=== PATIENT | male | born 1985 | race Caucasian/White ===

== ENCOUNTER 2021-05-16 14:35 | Emergency (ER) | payer OTHER ==
[~2021-05-16 14:35] MED LIST: AMOXICILLIN500 MG PO; NAPROXEN500 MG PO
[2021-05-16] MEDS ORDERED: NORCO 5-325 TA1 EACH PO (16:40)
[2021-05-16] MEDS ORDERED: AMOXICILLIN875 MG PO (16:40)
== END 2021-05-16 17:13 | disposition home or self-care (01) ==
LOC: FER 14:35
DX: K04.7 Periapical abscess without sinus (principal)
CPT/HCPCS: 99282; Q0163

== ENCOUNTER 2021-06-01 09:24 | Emergency (ER) | payer OTHER ==
[~2021-06-01 09:24] MED LIST changes: +AMOXICILLIN875 MG PO; +NORCO 5-325 TA1 EACH PO
[2021-06-01] MEDS ORDERED: AUGMENTIN 875-1 EACH PO (10:27)
[2021-06-01] MEDS ORDERED: NAPROXEN500 MG PO (10:27)
[2021-06-01] MEDS ORDERED: NORCO 5-325 TA1 EACH PO (10:27)
== END 2021-06-01 10:30 | disposition home or self-care (01) ==
LOC: FER 09:24
DX: K04.7 Periapical abscess without sinus (principal); F17.210 Nicotine dependence, cigarettes, uncomplicated
CPT/HCPCS: 99282

== ENCOUNTER 2022-03-10 14:37 | Emergency (ER) | payer OTHER ==
[~2022-03-10 14:37] MED LIST changes: +AUGMENTIN 875-1 EACH PO
[2022-03-10 16:45] LABS: INFLUENZA A NAA NEGATIVE (NEGATIVE)
[2022-03-10 16:55] LABS: CORONAVIRUS 2019 SARS-COV-2 POSITIVE (NEGATIVE)
[2022-03-10 17:19] LABS: BASOPHIL 0.5 % (0-2); EOSINOPHIL 0.2 % (0-5); HCT 44.6 % (42.0-52.0); HGB 15.1 g/dl (13.2-18.0); LYMPHOCYTE 3.3 % (15-48); MCH 29.8 pg (25.0-31.0); MCHC 33.9 g/dL (32.0-36.0); MCV 88.1 fL (78.0-100.0); MONOCYTE 8.3 % (0-12); MPV 10.6 fL (6.0-9.5); NEUTROPHIL 86.1 % (41-80); NRBC 0; PLT 206 K/uL (150-400); RBC 5.06 M/uL (4.70-6.00); RDW 12.3 % (11.5-14.0); WBC 10.2 K/uL (4.0-10.5)
[2022-03-10 17:36] LABS: CREATININE 1.07 mg/dL (0.67-1.17)
[2022-03-10] MEDS ORDERED: ONDANSETRON ODT4 MG PO (18:18)
== END 2022-03-10 18:29 | disposition home or self-care (01) ==
LOC: FER 14:37
PROVIDERS: Emergency Medicine; Nurse Practitioner Family
DX: U07.1 COVID-19 (principal); Z28.310 Unvaccinated for COVID-19
CPT/HCPCS: 36415; 80048; 85025; J1885; J2405; J7030; U0002